=== PATIENT | female | born 1975 | race Caucasian/White ===

== ENCOUNTER 2018-03-12 17:16 | Inpatient (IN) | payer BC ==
[~2018-03-12] VITALS: Ht 165.1 cm; Wt 156.1 kg
[2018-03-12] MEDS ORDERED: LEVOFLOXACIN 500MG 100 ML IV ONE (18:00)
[2018-03-12 19:16] LABS: Basophils # (auto) 0 uL; Basophils % (auto) 0.4 % (0.0-2.0); Eosinophils # (auto) 0.3 uL; Eosinophils % (auto) 3.6 % (0.0-7.0); Hematocrit 41.7 % (36.0-46.0); Hemoglobin 12.9 g/dL (12.2-16.2); Lymphocytes # (auto) 1.4 uL; Lymphocytes % (auto) 15.6 % (10.0-50.0); Mean Corpuscular Hemoglobin 27.2 pg (28.0-32.0); Monocytes # (auto) 0.8 uL; Monocytes % (auto) 8.7 % (0.0-12.0); Neutrophils # (auto) 6.5 uL; Neutrophils % (auto) 71.7 % (37.0-80.0); Nucleated Red Blood Cells % 0.1 %; Platelet Count (auto) 321 10^3/uL (140-450); Red Blood Cells 4.74 10^6/uL (4.0-5.20); Red Cell Distribution Width 17.4 % (11.8-14.3)
[2018-03-12 19:24] LABS: Alanine Aminotransferase 35 U/L (13-56); Albumin 3.2 g/dL (3.4-5.0); Anion Gap 8 (5-15); Aspartate Aminotransferase 26 U/L (15-37); BUN/Creatinine Ratio 17.7; Blood Urea Nitrogen 14 mg/dL (7-18); Calcium 8.7 mg/dL (8.5-10.1); Carbon Dioxide 27 mmol/L (21-32); Chloride 100 mmol/L (98-107); GFR African American 103 mL/min; GFR Non-African American 85 mL/min; Glucose 143 mg/dL (74-106); Magnesium 2.2 mg/dL (1.6-2.6); Potassium 3.4 mmol/L (3.5-5.1); Sodium 135 mmol/L (136-145)
[2018-03-12 19:27] LABS: Alkaline Phosphatase 101 U/L (45-117); Bilirubin, Total 0.3 mg/dL (0.2-1.0); Total Protein 8.2 g/dL (6.4-8.2)
[2018-03-12] MEDS ORDERED: ALBUTEROL SULF 2.5 MG/0.5ML(0.5%) NEB SOLN NEB PRN (19:45)
[2018-03-12] MEDS ORDERED: HYDROcodone-ACET 5/325MG TAB PO PRN (19:45)
[2018-03-12] MEDS ORDERED: ONDANSETRON HCL 4 MG/2 ML VIAL IV PRN (19:45)
[2018-03-12] MEDS ORDERED: ACETAMINOPHEN 325 MG TAB PO PRN (19:45)
[2018-03-12] MEDS ORDERED: LISI-646 PO (20:01)
[2018-03-12] MEDS ORDERED: HYDR25TA4 PO (20:01)
[2018-03-12] MEDS ORDERED: CLON0.1T PO (20:01)
[2018-03-12] MEDS ORDERED: METO25TA5 PO (20:01)
[2018-03-12] MEDS ORDERED: AZITHROMYCIN 500MG/ 250ML 250 ML IV SCH (20:30)
[2018-03-12 21:30] VITALS: BP 117/78
[2018-03-12 21:43] VITALS: BP 136/80
[2018-03-12] MEDS: cloNIDine HCL 0.1 MG TAB PO SCH (22:00)
[2018-03-12] MEDS: LISINOPRIL 20 MG TAB PO SCH (22:09)
[2018-03-12] MEDS: METOPROLOL TARTRATE 25 MG TAB PO SCH (22:10)
[2018-03-13 05:41] VITALS: BP 106/57
[2018-03-13 06:12] LABS: Basophils # (auto) 0 uL; Basophils % (auto) 0.4 % (0.0-2.0); Eosinophils # (auto) 0.5 uL; Eosinophils % (auto) 5.6 % (0.0-7.0); Hematocrit 36.7 % (36.0-46.0); Lymphocytes # (auto) 1.7 uL; Lymphocytes % (auto) 19.1 % (10.0-50.0); Mean Corpuscular Hemoglobin 27.4 pg (28.0-32.0); Mean Corpuscular Hgb Conc. 32.6 g/dL (32.0-36.0); Monocytes # (auto) 0.9 uL; Monocytes % (auto) 10.6 % (0.0-12.0); Neutrophils # (auto) 5.6 uL; Neutrophils % (auto) 64.3 % (37.0-80.0); Nucleated Red Blood Cells % 0.1 %; Platelet Count (auto) 306 10^3/uL (140-450); Red Blood Cells 4.37 10^6/uL (4.0-5.20); Red Cell Distribution Width 16.7 % (11.8-14.3); White Blood Cell 8.7 10^3/uL (4.4-10.8)
[2018-03-13 06:18] LABS: Albumin 3.2 g/dL (3.4-5.0); Calcium 8.7 mg/dL (8.5-10.1); Potassium 3.2 mmol/L (3.5-5.1)
[2018-03-13 06:22] LABS: BUN/Creatinine Ratio 18.5
[2018-03-13 06:24] LABS: Bilirubin, Total 0.3 mg/dL (0.2-1.0); Total Protein 7.9 g/dL (6.4-8.2)
[2018-03-13] MEDS: ALBUTEROL SULF 2.5 MG/0.5ML(0.5%) NEB SOLN NEB SCH ×4 (06:48→20:18)
[2018-03-13 08:10] VITALS: BP 124/72
[2018-03-13 09:00] VITALS: BP 124/72
[2018-03-13] MEDS ORDERED: LEVOFLOXACIN 500MG 100 ML IV SCH (09:00)
[2018-03-13] MEDS: HCTZ 25 MG TAB PO SCH (09:43)
[2018-03-13] MEDS: METOPROLOL TARTRATE 25 MG TAB PO SCH ×2 (09:44→21:55)
[2018-03-13] MEDS: LISINOPRIL 20 MG TAB PO SCH ×2 (09:45→21:55)
[2018-03-13] MEDS: cloNIDine HCL 0.1 MG TAB PO SCH ×2 (09:46→21:56)
[2018-03-13 13:31] VITALS: BP 129/83
[2018-03-13] MEDS ORDERED: POTASSIUM CHLORIDE 40 MEQ, LIDOCAINE 1% (LOCAL ANESTH.) 4 ML in SODIUM CHL 0.9% 100 ML IV ONE (14:30)
[2018-03-13] MEDS: POTASSIUM CHL 20MEQ/100ML 100 ML IV SCH ×2 (16:30→18:30)
[2018-03-13 17:00] VITALS: BP 122/80
[2018-03-13 20:00] VITALS: BP_SYST 122; BP_SYST 124; BP_DIAS 54
[2018-03-13] MEDS: PROMETHAZINE W/CODEINE 5 ML ORAL SYRUP PO PRN (23:00)
[2018-03-14 04:51] VITALS: BP 151/81
[2018-03-14] MEDS: PROMETHAZINE W/CODEINE 5 ML ORAL SYRUP PO PRN (05:01)
[2018-03-14] MEDS: ALBUTEROL SULF 2.5 MG/0.5ML(0.5%) NEB SOLN NEB SCH ×2 (06:14→10:25)
[2018-03-14 07:02] LABS: Basophils # (auto) 0 uL; Basophils % (auto) 0.4 % (0.0-2.0); Eosinophils # (auto) 0.6 uL; Eosinophils % (auto) 7.7 % (0.0-7.0); Hematocrit 36.7 % (36.0-46.0); Lymphocytes # (auto) 1.5 uL; Lymphocytes % (auto) 19.9 % (10.0-50.0); Mean Corpuscular Hemoglobin 27.4 pg (28.0-32.0); Mean Corpuscular Hgb Conc. 32.7 g/dL (32.0-36.0); Mean Corpuscular Volume 83.8 fL (80.0-100.0); Monocytes # (auto) 0.6 uL; Monocytes % (auto) 8.5 % (0.0-12.0); Neutrophils # (auto) 4.8 uL; Neutrophils % (auto) 63.5 % (37.0-80.0); Nucleated Red Blood Cells % 0.1 %; Platelet Count (auto) 302 10^3/uL (140-450); Red Blood Cells 4.39 10^6/uL (4.0-5.20); Red Cell Distribution Width 16.5 % (11.8-14.3); White Blood Cell 7.6 10^3/uL (4.4-10.8)
[2018-03-14 07:12] LABS: BUN/Creatinine Ratio 25.4; Calcium 8.5 mg/dL (8.5-10.1); Potassium 3.5 mmol/L (3.5-5.1)
[2018-03-14 07:15] LABS: Bilirubin, Total 0.3 mg/dL (0.2-1.0); Total Protein 7.5 g/dL (6.4-8.2)
[2018-03-14 09:00] VITALS: BP 132/68
[2018-03-14] MEDS ORDERED: cefTRIAXone 1GM/10ml IVPUSH 10 ML IV SCH (09:00)
[2018-03-14] MEDS: cloNIDine HCL 0.1 MG TAB PO SCH (10:00)
[2018-03-14] MEDS: METOPROLOL TARTRATE 25 MG TAB PO SCH (10:40)
[2018-03-14] MEDS: LISINOPRIL 20 MG TAB PO SCH (10:41)
[2018-03-14] MEDS: HCTZ 25 MG TAB PO SCH (10:41)
[2018-03-14 11:31] VITALS: BP 132/68
== END 2018-03-14 13:20 | disposition home or self-care (01) | DRG 194 ==
LOC: ER 17:16 → TELE 17:17 → TELE-WESTW 21:30
PROVIDERS: ADMIT Internal Medicine; ATTEND Internal Medicine
DX: J18.9 Pneumonia, unspecified organism (principal); Z68.43 Body mass index [BMI] 50.0-59.9, adult; E66.01 Morbid (severe) obesity due to excess calories; E87.6 Hypokalemia; I10 Essential (primary) hypertension; R09.02 Hypoxemia; Z90.710 Acquired absence of both cervix and uterus
CPT/HCPCS: 36415; 71045; 80053; 83605; 83735; 83880; 84484; 85025; 85379; 87040; 93005; 94640; 94761; 96365; 96366; 96375; J1956; J2001; J3480

== ENCOUNTER 2019-04-15 05:44 | Inpatient (IN) | payer BC ==
[~2019-04-15] VITALS: Ht 162.6 cm; Wt 144.2 kg
[~2019-04-15 05:44] MED LIST: CLON0.1T PO; HYDR25TA4 PO; LISI-646 PO; METO25TA5 PO
[2019-04-15] MEDS ORDERED: cloNIDine HCL 0.1 MG TAB PO ONE (06:15)
[2019-04-15 06:58] LABS: Basophils # (auto) 0 uL; Basophils % (auto) 0.1 % (0.0-2.0); Eosinophils # (auto) 0.2 uL; Eosinophils % (auto) 2.8 % (0.0-7.0); Hematocrit 39.6 % (36.0-46.0); Hemoglobin 12.8 g/dL (12.2-16.2); Lymphocytes # (auto) 1.5 uL; Mean Corpuscular Hemoglobin 26.1 pg (28.0-32.0); Mean Corpuscular Hgb Conc. 32.4 g/dL (32.0-36.0); Mean Corpuscular Volume 80.6 fL (80.0-100.0); Monocytes # (auto) 0.6 uL; Monocytes % (auto) 7.5 % (0.0-12.0); Neutrophils # (auto) 5.5 uL; Neutrophils % (auto) 70.6 % (37.0-80.0); Platelet Count (auto) 315 10^3/uL (140-450); Red Blood Cells 4.92 10^6/uL (4.0-5.20); White Blood Cell 7.8 10^3/uL (4.4-10.8)
[2019-04-15 07:27] LABS: Albumin 3.5 g/dL (3.4-5.0); Blood Urea Nitrogen 20 mg/dL (7-18); Chloride 106 mmol/L (98-107); Glucose 106 mg/dL (74-106); Potassium 3.7 mmol/L (3.5-5.1); Sodium 140 mmol/L (136-145)
[2019-04-15 07:41] LABS: Alanine Aminotransferase 47 U/L (13-56); Alkaline Phosphatase 106 U/L (45-117); Anion Gap 9 (5-15); Aspartate Aminotransferase 19 U/L (15-37); BUN/Creatinine Ratio 30.3; Bilirubin, Total 0.3 mg/dL (0.2-1.0); Carbon Dioxide 25 mmol/L (21-32); GFR African American 126 mL/min; GFR Non-African American 104 mL/min; Total Protein 7.6 g/dL (6.4-8.2)
[2019-04-15] MEDS ORDERED: ACETAMINOPHEN 325 MG TAB PO ONE (08:00)
[2019-04-15] MEDS ORDERED: SODIUM CHLORIDE 0.9% 1,000 ML IV SCH (10:11)
[2019-04-15] MEDS ORDERED: PROMETHAZINE HCL 25 MG/ML 1ML IV PRN (10:15)
[2019-04-15] MEDS ORDERED: TEMAZEPAM 15 MG CAP PO PRN (10:15)
[2019-04-15] MEDS ORDERED: ACETAMINOPHEN 500 MG TAB PO PRN (10:15)
[2019-04-15] MEDS ORDERED: LACTULOSE 20Gm/30ML SOLN PO PRN (10:15)
[2019-04-15] MEDS ORDERED: ALBUTEROL SULF 2.5 MG/0.5ML(0.5%) NEB SOLN NEB PRN (10:15)
[2019-04-15] MEDS ORDERED: MORPHINE SULF INJ 2 MG/ML SYRINGE 1ML IV PRN (10:15)
[2019-04-15] MEDS ORDERED: NITROGLYCERIN 0.4 MG SL TAB SL PRN (10:15)
[2019-04-15] MEDS ORDERED: LOSARTAN POTASSIUM 25 MG TAB PO ONE (11:00)
[2019-04-15] MEDS: traMADol HCL 50 MG TAB PO PRN ×2 (11:43→21:17)
[2019-04-15] MEDS: METOPROLOL TARTRATE 25 MG TAB PO SCH ×2 (11:43→21:44)
[2019-04-15] MEDS ORDERED: ALBUTEROL SULF 2.5 MG/0.5ML(0.5%) NEB SOLN NEB SCH (12:00)
[2019-04-15] MEDS ORDERED: POTASSIUM EFFERVESENT TAB 25 MEQ PO ONE (12:15)
[2019-04-15] MEDS ORDERED: FUROSEMIDE 40 MG/4 ML VIAL IV ONE (12:15)
--- NOTE | 2019-04-15 19:21 | NUR ---
OPENING NOTES RECEIVED REPORT FROM [facility] NURSE JUAN. PT IS AWAKE AND ORIENTATED WITH NO S/S OF DISTRESS BUT PAIN 8/10 WITH SOME NAUSEA. NO S/S OF SOB. FAMILY IS AT BEDSIDE. BED BRAKES ARE LOCKED AND BED IS IN LOWEST POSITION. CALL LIGHT IS WITH IN REACH AND SIDE RAILS ARE UP X 2. HOB IS 30 DEGREES. DISCUSSED POC WITH PATIENT. PT VERBALIZED UNDERSTANDING. WILL MONITOR Q 1HR.
[2019-04-15 21:25] VITALS: BP 171/91
[2019-04-15] MEDS: ATORVASTATIN 20 MG TAB PO SCH (21:44)
[2019-04-15] MEDS ORDERED: METOPROLOL TARTRATE 25 MG TAB PO SCH (22:00)
[2019-04-16] MEDS: traMADol HCL 50 MG TAB PO PRN ×2 (04:04→19:32)
[2019-04-16 05:11] VITALS: BP 163/90
[2019-04-16 07:07] LABS: Cholesterol 156 mg/dL (< 200); HDL Cholesterol 41 mg/dL (40-59); LDL Cholesterol 100 mg/dL (< 100); Triglycerides 168 mg/dL (< 150)
--- NOTE | 2019-04-16 07:14 | NUR ---
CLOSING NOTES ENDORSED CARE TO DAY SHIFT NURSEJUAN.
[2019-04-16 08:59] VITALS: BP 159/81
[2019-04-16] MEDS ORDERED: LOSARTAN POTASSIUM 25 MG TAB PO SCH (10:00)
[2019-04-16] MEDS ORDERED: NITROGLYCERIN 0.2MG/HR TOPICAL PATCH TD SCH (10:00)
[2019-04-16] MEDS ORDERED: POTASSIUM CHL 20 Meq TABLET PO SCH (10:00)
[2019-04-16] MEDS ORDERED: ENALAPRIL MALEATE 10 MG TAB PO SCH (10:00)
[2019-04-16] MEDS ORDERED: LEVOFLOXACIN 500MG 100 ML IV SCH (10:00)
[2019-04-16] MEDS ORDERED: FUROSEMIDE 40 MG/4 ML VIAL IV SCH (10:00)
[2019-04-16] MEDS: ASPirin 81 mg TAB PO SCH (10:43)
[2019-04-16] MEDS: METOPROLOL TARTRATE 25 MG TAB PO SCH ×2 (10:44→21:24)
[2019-04-16] MEDS: ENOXAPARIN SOD 40 MG/0.4 ML SYRINGE SC SCH (10:44)
[2019-04-16] MEDS ORDERED: OPTISON 3ml Vial for INJ IV ONE (11:31)
[2019-04-16 13:00] VITALS: BP 157/89
[2019-04-16] MEDS ORDERED: HCTZ 25 MG TAB PO ONE (15:15)
[2019-04-16 17:17] VITALS: BP 158/75
[2019-04-16 20:00] VITALS: BP 158/75
--- NOTE | 2019-04-16 20:58 | NUR ---
OPENING NOTES RECEIVED REPORT FROM [facility] NURSE JUAN. PT IS AWAKE AND ORIENTATED x 4 WITH NO S/S OF DISTRESS BUT HAS HEADACHE WITH PAIN 5/10 NO NAUSEA. NO S/S OF SOB. FAMILY IS AT BEDSIDE. BED BRAKES ARE LOCKED AND BED IS IN LOWEST POSITION. CALL LIGHT IS WITH IN REACH AND SIDE RAILS ARE UP X 2. HOB IS 30 DEGREES. DISCUSSED POC WITH PATIENT. PT VERBALIZED UNDERSTANDING. WILL MONITOR Q 1HR.
[2019-04-16] MEDS: ATORVASTATIN 20 MG TAB PO SCH (21:23)
[2019-04-16 21:53] VITALS: BP 174/78
[2019-04-17] VITALS (7 sets, daily range): BP systolic 130–161; BP diastolic 69–84
[2019-04-17 05:41] LABS: Basophils # (auto) 0.1 uL; Eosinophils # (auto) 0.3 uL; Hemoglobin 13.5 g/dL (12.2-16.2); Mean Corpuscular Hemoglobin 26.4 pg (28.0-32.0); Monocytes # (auto) 0.6 uL
[2019-04-17 05:45] LABS: Basophils % (auto) 0.9 % (0.0-2.0); Eosinophils % (auto) 3.8 % (0.0-7.0); Hematocrit 41.2 % (36.0-46.0); Lymphocytes # (auto) 1.5 uL; Lymphocytes % (auto) 17.5 % (10.0-50.0); Mean Corpuscular Hgb Conc. 32.7 g/dL (32.0-36.0); Mean Corpuscular Volume 80.8 fL (80.0-100.0); Monocytes % (auto) 7.3 % (0.0-12.0); Neutrophils # (auto) 5.9 uL; Neutrophils % (auto) 70.5 % (37.0-80.0); Platelet Count (auto) 329 10^3/uL (140-450); Red Cell Distribution Width 16.5 % (11.8-14.3); White Blood Cell 8.4 10^3/uL (4.4-10.8)
[2019-04-17 06:07] LABS: BUN/Creatinine Ratio 21.9; Calcium 9.4 mg/dL (8.5-10.1); Magnesium 2.1 mg/dL (1.6-2.6)
--- NOTE | 2019-04-17 07:18 | NUR ---
CLOSING NOTES ENDORSED CARE TO DAY SHIFT NURSEJUAN.
--- NOTE | 2019-04-17 07:30 | NUR ---
AWAKE ALERT ORIENTED TIMES 4 DENIES ANY DIZZINESS OR CHEST PAIN AT THIS TIME . NO SIGNS OF DISTRESS.
[2019-04-17] MEDS: LOSARTAN POTASSIUM 50 MG TAB PO SCH (09:35)
[2019-04-17] MEDS: ENOXAPARIN SOD 40 MG/0.4 ML SYRINGE SC SCH (09:35)
[2019-04-17] MEDS: ASPirin 81 mg TAB PO SCH (09:35)
[2019-04-17] MEDS: METOPROLOL TARTRATE 25 MG TAB PO SCH ×2 (09:36→21:48)
[2019-04-17] MEDS: HCTZ 25 MG TAB PO SCH (09:36)
[2019-04-17] MEDS: traMADol HCL 50 MG TAB PO PRN (12:28)
--- NOTE | 2019-04-17 12:29 | NUR ---
CRYING STATES HEADACHE 8/10 AND FELT DIZZY WHEN SHE WALKED TO THE BATH ROOM. MEDICATED WITH ULTRAM 50 MG.
--- NOTE | 2019-04-17 12:30 | NUR ---
DR Evangelist DAVEY AT BEDSIDE.
--- NOTE | 2019-04-17 19:42 | NUR ---
OPENING NOTES RECEIVED REPORT FROM [facility] NURSE JUNA. PT IS AWAKE AND ORIENTATED x 4 WITH NO S/S OF DISTRESS BUT HAS HEADACHE WITH PAIN 4/10 NO NAUSEA. NO S/S OF SOB. FAMILY IS AT BEDSIDE. BED BRAKES ARE LOCKED AND BED IS IN LOWEST POSITION. CALL LIGHT IS WITH IN REACH AND SIDE RAILS ARE UP X 2. HOB IS 30 DEGREES. DISCUSSED POC WITH PATIENT. PT VERBALIZED UNDERSTANDING. WILL MONITOR Q 1HR.
[2019-04-17] MEDS: ATORVASTATIN 20 MG TAB PO SCH (21:47)
[2019-04-18 05:00] VITALS: BP 130/73
[2019-04-18] MEDS: traMADol HCL 50 MG TAB PO PRN ×2 (05:49→11:26)
--- NOTE | 2019-04-18 07:05 | NUR ---
CLOSING NOTES ENDORSED CARE TO DAY SHIFT NURSEJUAN.
[2019-04-18 08:00] VITALS: BP 136/80
[2019-04-18 09:00] VITALS: BP 139/78
[2019-04-18] MEDS: ASPirin 81 mg TAB PO SCH (09:36)
[2019-04-18] MEDS: LOSARTAN POTASSIUM 50 MG TAB PO SCH (09:36)
[2019-04-18] MEDS: METOPROLOL TARTRATE 25 MG TAB PO SCH (09:37)
[2019-04-18] MEDS: HCTZ 25 MG TAB PO SCH (09:37)
[2019-04-18] MEDS: ENOXAPARIN SOD 40 MG/0.4 ML SYRINGE SC SCH (09:38)
--- NOTE | 2019-04-18 09:50 | NUR ---
STATES HEAD ACHE 03/05. MEDICATED WITH TYLENOL.
--- NOTE | 2019-04-18 10:42 | NUR ---
AWAKE ALERT ORIENTED TIMES 4. DENIES ANY CHEST PAIN OR DIZZINESS AT THIS TIME. NO SIGNS OF DISTRESS.
[2019-04-18 11:46] VITALS: BP 139/78
[2019-04-18 12:42] VITALS: BP 128/65
--- NOTE | 2019-04-18 13:21 | NUR ---
Discharge instructions given as ordered. Encourage to follow up with PMD as instructed. All questions and concerns addressed. Patient verbalized understanding. Medication reconciliation form completed and copy given to patient. Patient taken to vehicle via wheelchair with all personal belongings, accompanied by staff and family member. No distress noted at time of departure.
== END 2019-04-18 13:30 | disposition home or self-care (01) | DRG 305 ==
LOC: ER 05:49 → TELE 05:50 → TELE-WESTW 16:09
PROVIDERS: ADMIT Internal Medicine; ATTEND Internal Medicine
DX: I16.0 Hypertensive urgency (principal); Z68.43 Body mass index [BMI] 50.0-59.9, adult; E66.01 Morbid (severe) obesity due to excess calories; M19.90 Unspecified osteoarthritis, unspecified site; I11.0 Hypertensive heart disease with heart failure; I50.9 Heart failure, unspecified; Z90.49 Acquired absence of other specified parts of digestive tract; Z90.710 Acquired absence of both cervix and uterus; Z83.3 Family history of diabetes mellitus; Z82.49 Family history of ischemic heart disease and other diseases of the circulatory system; Z79.899 Other long term (current) drug therapy
CPT/HCPCS: 36415; 70450; 71045; 80048; 80053; 80061; 82550; 83735; 83880; 84484; 85025; 85379; 85652; 86141; 93005; 93306; 96361; 96374; G0378; Q9956

== ENCOUNTER 2019-07-08 15:40 | Inpatient (IN) | payer BC ==
[~2019-07-08] VITALS: Ht 30.5 cm; Wt 153.3 kg
[~2019-07-08 15:40] MED LIST changes: -HYDR25TA4 PO; -LISI-646 PO
--- NOTE | 2019-07-08 16:30 | NUR ---
Direct Admit Note AZAEL MELENDREZ admitted to Telemetry/MS unit as a direct admit per MD order. Patient oriented to ANTOINE SRIVASTAVA RN primary RN, unit, room, bed, and unit policies regarding patient care and visiting hours. Patient now on continuous telemetry monitoring, tele box # [id number] and telemetry reading on arrival to unit is sinus tachycardia at 108. Patient placed on bedside oxygen, weighed by bed scale and encouraged to call if they need something. All questions and concerns addressed, patient verbalized understanding. MD notified of patients arrival and admit orders received.
[2019-07-08 17:00] VITALS: BP 165/93
--- NOTE | 2019-07-08 17:00 | NUR ---
Paged Dr. Anmol MD, for orders regarding direct admission. Awaiting reply.
--- NOTE | 2019-07-08 17:27 | NUR ---
Received call back from Dr. Anmol MD; new orders received.
[2019-07-08] MEDS ORDERED: ALBUTEROL SULF 2.5 MG/0.5ML(0.5%) NEB SOLN NEB PRN (17:30)
[2019-07-08] MEDS ORDERED: ALBUTEROL SULF 2.5 MG/0.5ML(0.5%) NEB SOLN NEB ONE (17:30)
[2019-07-08 18:05] LABS: Basophils # (auto) 0.1 uL; Eosinophils # (auto) 0.3 uL; Hemoglobin 12.8 g/dL (12.2-16.2); Mean Corpuscular Hemoglobin 26.6 pg (28.0-32.0); Neutrophils # (auto) 10.3 uL; Red Cell Distribution Width 17.4 % (11.8-14.3)
[2019-07-08] MEDS: ALBUTEROL SULF 2.5 MG/0.5ML(0.5%) NEB SOLN NEB SCH ×2 (18:05→22:31)
[2019-07-08 18:06] LABS: Basophils % (auto) 0.8 % (0.0-2.0); Hematocrit 39.5 % (36.0-46.0); Lymphocytes # (auto) 1.1 uL; Lymphocytes % (auto) 8.9 % (10.0-50.0); Mean Corpuscular Hgb Conc. 32.3 g/dL (32.0-36.0); Mean Corpuscular Volume 82.5 fL (80.0-100.0); Monocytes # (auto) 0.7 uL; Monocytes % (auto) 5.9 % (0.0-12.0); Neutrophils % (auto) 82.4 % (37.0-80.0); Nucleated Red Blood Cells % 0.1 %; Platelet Count (auto) 305 10^3/uL (140-450); Red Blood Cells 4.79 10^6/uL (4.0-5.20); White Blood Cell 12.5 10^3/uL (4.4-10.8)
[2019-07-08] MEDS ORDERED: cefTRIAXone 1GM/50ML D5W 50 ML IV ONE (18:15)
[2019-07-08 18:28] LABS: Albumin 3.3 g/dL (3.4-5.0); Calcium 8.5 mg/dL (8.5-10.1); Potassium 3.5 mmol/L (3.5-5.1)
[2019-07-08] MEDS: ACETAMINOPHEN 325 MG TAB PO PRN (18:28)
[2019-07-08] MEDS: LABETALOL HCL 5 MG/ML ML 20ML VIAL IV PRN (18:29)
[2019-07-08] MEDS: SODIUM CHLORIDE 0.9% 1,000 ML IV SCH (18:29)
[2019-07-08 18:33] LABS: BUN/Creatinine Ratio 12.9; Bilirubin, Total 0.6 mg/dL (0.2-1.0); Total Protein 7.6 g/dL (6.4-8.2)
[2019-07-08] MEDS ORDERED: LOSA-69 PO (19:02)
[2019-07-08] MEDS ORDERED: HCTZ25T PO (19:02)
--- NOTE | 2019-07-08 19:30 | NUR ---
RECEIVED PT FROM DAY RN POC REVIEWED
[2019-07-08 19:57] VITALS: BP 165/93
[2019-07-08] MEDS: methylPREDNISolone SOD SUCC 40 MG/ML VL IV SCH (21:35)
[2019-07-08 22:07] VITALS: BP 153/82
--- NOTE | 2019-07-08 23:48 | NUR ---
RESTING COMFORTABLE WITH HOB UP RESP EVEN AND UNLABORED, NO S/S OF RESP DISTRESS SATS 98% ON 2L
[2019-07-09] MEDS: LABETALOL HCL 5 MG/ML ML 20ML VIAL IV PRN (00:49)
[2019-07-09] MEDS: ZOLPIDEM TARTRATE 5 MG TAB PO PRN (00:54)
[2019-07-09] MEDS: ACETAMINOPHEN 325 MG TAB PO PRN ×2 (01:00→20:38)
[2019-07-09] MEDS: ALBUTEROL SULF 2.5 MG/0.5ML(0.5%) NEB SOLN NEB SCH ×6 (02:21→22:40)
[2019-07-09 05:59] VITALS: BP_SYST 153
--- NOTE | 2019-07-09 06:53 | NUR ---
resting with eyes closed resp even and unlabored, denies pain report given to am nurse poc reviewed
--- NOTE | 2019-07-09 07:30 | NUR ---
Opening Shift Note Assumed care of patient, awake, alert, and oriented x4. No S/S of distress/SOB or pain. IV is in left forearm and is asymptomatic, intact, patent, and infusing normal saline at 50 mL/hour. Bed is locked and in lowest position and call light is within reach. Instructed on POC and to call for assist PRN, and patient verbalized understanding. Will continue to monitor for changes Q1hr and PRN.
--- NOTE | 2019-07-09 08:45 | NUR ---
Dr. Anmol MD, at bedside.
[2019-07-09 09:00] VITALS: BP 149/65
[2019-07-09] MEDS: methylPREDNISolone SOD SUCC 40 MG/ML VL IV SCH ×2 (09:35→20:30)
[2019-07-09] MEDS: cefTRIAXone 1GM/50ML D5W 50 ML IV SCH (09:35)
[2019-07-09 10:08] LABS: Basophils # (auto) 0.1 uL; Eosinophils # (auto) 0 uL; Lymphocytes # (auto) 0.7 uL; Mean Corpuscular Volume 83.4 fL (80.0-100.0); Monocytes # (auto) 0.4 uL
[2019-07-09 10:10] LABS: Basophils % (auto) 1.3 % (0.0-2.0); Eosinophils % (auto) 0.1 % (0.0-7.0); Hemoglobin 12.5 g/dL (12.2-16.2); Lymphocytes % (auto) 6.7 % (10.0-50.0); Mean Corpuscular Hemoglobin 26.7 pg (28.0-32.0); Monocytes % (auto) 3.3 % (0.0-12.0); Neutrophils # (auto) 9.7 uL; Neutrophils % (auto) 88.6 % (37.0-80.0); Platelet Count (auto) 327 10^3/uL (140-450); Red Blood Cells 4.68 10^6/uL (4.0-5.20); Red Cell Distribution Width 17.2 % (11.8-14.3); White Blood Cell 10.9 10^3/uL (4.4-10.8)
[2019-07-09 10:26] LABS: Albumin 3.3 g/dL (3.4-5.0); Calcium 8.4 mg/dL (8.5-10.1); Potassium 4.4 mmol/L (3.5-5.1)
[2019-07-09 10:39] LABS: BUN/Creatinine Ratio 15.2; Total Protein 7.2 g/dL (6.4-8.2)
[2019-07-09 10:42] LABS: Bilirubin, Total 0.3 mg/dL (0.2-1.0)
[2019-07-09 13:00] VITALS: BP 135/63
[2019-07-09] MEDS: SODIUM CHLORIDE 0.9% 1,000 ML IV SCH (13:30)
[2019-07-09 16:44] VITALS: BP 127/56
--- NOTE | 2019-07-09 19:47 | NUR ---
RECEIVED PT FROM DAY RN POC REVIEWED
[2019-07-09 22:07] VITALS: BP 147/79
[2019-07-10] MEDS: ALBUTEROL SULF 2.5 MG/0.5ML(0.5%) NEB SOLN NEB SCH ×6 (02:15→22:04)
--- NOTE | 2019-07-10 02:17 | NUR ---
PT AWOKE C/O INCREASED SOB WHEN WALKING, O2 INCREASED TO 2L, LONG O2 TUBING USED TO AMBULATE TO BATHROOM
--- NOTE | 2019-07-10 05:09 | NUR ---
pt c/o sob after drinking large amounts of fluid, reminded pt to limit her fluids discussed poc
[2019-07-10 05:27] VITALS: BP 149/79
--- NOTE | 2019-07-10 06:53 | NUR ---
report given to am nurse poc reviewed
[2019-07-10 06:57] LABS: Basophils # (auto) 0 uL; Basophils % (auto) 0.2 % (0.0-2.0); Eosinophils # (auto) 0 uL; Hematocrit 37.1 % (36.0-46.0); Hemoglobin 12.1 g/dL (12.2-16.2); Lymphocytes % (auto) 6.6 % (10.0-50.0); Mean Corpuscular Hemoglobin 27.1 pg (28.0-32.0); Mean Corpuscular Hgb Conc. 32.7 g/dL (32.0-36.0); Mean Corpuscular Volume 82.7 fL (80.0-100.0); Monocytes # (auto) 0.6 uL; Monocytes % (auto) 4.4 % (0.0-12.0); Neutrophils # (auto) 12.9 uL; Neutrophils % (auto) 88.8 % (37.0-80.0); Platelet Count (auto) 333 10^3/uL (140-450); Red Blood Cells 4.49 10^6/uL (4.0-5.20); Red Cell Distribution Width 17.4 % (11.8-14.3); White Blood Cell 14.5 10^3/uL (4.4-10.8)
[2019-07-10 07:19] LABS: Albumin 3.2 g/dL (3.4-5.0); BUN/Creatinine Ratio 20.3; Calcium 8.9 mg/dL (8.5-10.1)
[2019-07-10 07:22] LABS: Bilirubin, Total 0.2 mg/dL (0.2-1.0); Total Protein 7.5 g/dL (6.4-8.2)
--- NOTE | 2019-07-10 07:55 | NUR ---
Opening Shift Note Assumed care of patient, awake and alert, sitting up at the side of the bed. No S/S of distress/SOB or pain. Instructed on POC and to call for assist PRN, will continue to monitor for changes Q1hr and PRN.
[2019-07-10 09:00] VITALS: BP 161/77
[2019-07-10] MEDS: cefTRIAXone 1GM/50ML D5W 50 ML IV SCH (09:25)
[2019-07-10] MEDS: methylPREDNISolone SOD SUCC 40 MG/ML VL IV SCH ×2 (09:32→21:56)
[2019-07-10] MEDS: LABETALOL HCL 5 MG/ML ML 20ML VIAL IV PRN (09:33)
[2019-07-10] MEDS: SODIUM CHLORIDE 0.9% 1,000 ML IV SCH (09:33)
--- NOTE | 2019-07-10 11:00 | NUR ---
Spouse at bedside. Patient eating outside meal.
[2019-07-10 13:00] VITALS: BP 162/97
[2019-07-10 17:00] VITALS: BP 126/64
--- NOTE | 2019-07-10 19:40 | NUR ---
Opening Shift Note Assumed care of patient, alert and oriented x 4. No S/S of distress or pain. C/O SOB with exertion. On 2L oxygen via nasal cannula and ambulatory. Bed in lowest locked position, side rails up x 2, call light within reach. Instructed on POC and to call for assist PRN, will continue to monitor for changes Q1hr and PRN.
[2019-07-10 21:00] VITALS: BP 142/69
[2019-07-10] MEDS: LORATADINE 10 MG TAB PO SCH (21:56)
[2019-07-10] MEDS: ZOLPIDEM TARTRATE 5 MG TAB PO PRN (21:56)
--- NOTE | 2019-07-10 23:00 | NUR ---
Patient C/O Chest pain of 7/10. Patient stated, "I have a sharp pain in my chest." Blood pressure reading of 141/72. EKG reading Sinus rhythm, heart rate 71. Patient is stable. Will follow up on protocol for CP.
--- NOTE | 2019-07-10 23:05 | NUR ---
Patient reports not having anymore chest pain. Patient resting in bed, asymptomatic and stable. Will continue to monitor and continue care.
--- NOTE | 2019-07-10 23:05 | NUR ---
Paged WANDA Negron for telemetry protocol orders. Awaiting call back.
--- NOTE | 2019-07-10 23:15 | NUR ---
Received call back from WANDA Negron. Made aware of patient experiencing CP. Ordered telemetry protocol. RBO, will carry out orders and continue care.
[2019-07-10] MEDS ORDERED: MORPHINE SULF INJ 2 MG/ML SYRINGE 1ML IV PRN (23:30)
[2019-07-10] MEDS ORDERED: NITROGLYCERIN 0.4 MG SL TAB SL PRN (23:30)
[2019-07-11 05:59] LABS: Basophils # (auto) 0 uL; Basophils % (auto) 0.2 % (0.0-2.0); Eosinophils # (auto) 0 uL; Hemoglobin 11.8 g/dL (12.2-16.2)
[2019-07-11] MEDS: ALBUTEROL SULF 2.5 MG/0.5ML(0.5%) NEB SOLN NEB SCH ×6 (06:00→22:35)
[2019-07-11 06:03] LABS: Hematocrit 37.4 % (36.0-46.0); Lymphocytes # (auto) 1.1 uL; Lymphocytes % (auto) 8.8 % (10.0-50.0); Mean Corpuscular Hemoglobin 26.3 pg (28.0-32.0); Mean Corpuscular Hgb Conc. 31.5 g/dL (32.0-36.0); Mean Corpuscular Volume 83.8 fL (80.0-100.0); Monocytes # (auto) 0.4 uL; Monocytes % (auto) 3.2 % (0.0-12.0); Neutrophils # (auto) 10.6 uL; Neutrophils % (auto) 87.8 % (37.0-80.0); Platelet Count (auto) 342 10^3/uL (140-450); Red Blood Cells 4.46 10^6/uL (4.0-5.20); Red Cell Distribution Width 16.8 % (11.8-14.3); White Blood Cell 12.1 10^3/uL (4.4-10.8)
[2019-07-11 06:24] LABS: Potassium 4.2 mmol/L (3.5-5.1)
[2019-07-11] MEDS: SODIUM CHLORIDE 0.9% 1,000 ML IV SCH (06:41)
[2019-07-11 07:41] LABS: BUN/Creatinine Ratio 29.5
[2019-07-11 07:42] LABS: Bilirubin, Total 0.3 mg/dL (0.2-1.0); Calcium 8.5 mg/dL (8.5-10.1); Total Protein 7.2 g/dL (6.4-8.2)
--- NOTE | 2019-07-11 07:50 | NUR ---
Opening Shift Note Assumed care of patient, awake and alert sitting up in bed. No S/S of distress/SOB or pain. Instructed on POC and to call for assist PRN, will continue to monitor for changes Q1hr and PRN.
[2019-07-11] MEDS: ACETAMINOPHEN 325 MG TAB PO PRN (07:58)
[2019-07-11] MEDS: LABETALOL HCL 5 MG/ML ML 20ML VIAL IV PRN ×2 (07:59→21:43)
[2019-07-11 09:00] VITALS: BP 151/90
[2019-07-11] MEDS: cefTRIAXone 1GM/50ML D5W 50 ML IV SCH (09:28)
[2019-07-11] MEDS: methylPREDNISolone SOD SUCC 40 MG/ML VL IV SCH ×2 (09:29→21:42)
--- NOTE | 2019-07-11 10:50 | NUR ---
IV removal IV to left forearm leaking. Same DC'd with clean sterile technique, catheter fully intact. Pressure dressing applied to site. Patient tolerated well. IV insertion IV access obtained, via clean sterile technique by inserting 22 gauge catheter at right forearm after 1 attempt by lost charge card clerk. IV secured properly. No trauma to site. Patient tolerated well.
[2019-07-11 13:00] VITALS: BP 139/77
--- NOTE | 2019-07-11 16:15 | NUR ---
Oxygen Saturation Patient oxygen saturation after ambulating in room was 92-94%.
[2019-07-11 16:34] VITALS: BP 148/68
--- NOTE | 2019-07-11 20:00 | NUR ---
Opening Shift Note Assumed care of patient, alert and oriented x 4. No S/S of distress/SOB or pain. Ambulatory and on room air. Bed in lowest locked position, side rails up x 2, call light within reach. Instructed on POC and to call for assist PRN, will continue to monitor for changes Q1hr and PRN.
[2019-07-11] MEDS: ZOLPIDEM TARTRATE 5 MG TAB PO PRN (21:43)
[2019-07-11] MEDS: LORATADINE 10 MG TAB PO SCH (21:43)
[2019-07-11 22:00] VITALS: BP 162/85
[2019-07-12] MEDS: SODIUM CHLORIDE 0.9% 1,000 ML IV SCH (01:30)
[2019-07-12] MEDS: ALBUTEROL SULF 2.5 MG/0.5ML(0.5%) NEB SOLN NEB SCH ×3 (02:17→10:48)
[2019-07-12 04:08] VITALS: BP 147/79
[2019-07-12 05:00] VITALS: BP_SYST 112; BP_SYST 150; BP_DIAS 65; BP_DIAS 82
[2019-07-12 06:05] LABS: Hematocrit 37.1 % (36.0-46.0); Hemoglobin 12.1 g/dL (12.2-16.2); Mean Corpuscular Hemoglobin 27.1 pg (28.0-32.0); Mean Corpuscular Hgb Conc. 32.7 g/dL (32.0-36.0); Mean Corpuscular Volume 82.9 fL (80.0-100.0); Platelet Count (auto) 332 10^3/uL (140-450); Red Blood Cells 4.48 10^6/uL (4.0-5.20); Red Cell Distribution Width 16.9 % (11.8-14.3); White Blood Cell 10.6 10^3/uL (4.4-10.8)
[2019-07-12 06:10] LABS: BUN/Creatinine Ratio 27.5; Calcium 8.4 mg/dL (8.5-10.1); Potassium 4.2 mmol/L (3.5-5.1)
[2019-07-12 06:19] LABS: Band Neutrophils % (manual) 0; Basophils % (manual) 0 (0.0-2.0); Blast Cells 0; Eosinophils % (manual) 0 (0-7); Metamyelocytes % 0; Myelocytes % 0; Promyelocytes % 0; Reactive Lymphocytes 0
[2019-07-12 06:51] LABS: Lymphocytes % (manual) 13 (10.0-50.0); Monocytes % (manual) 5 (0-12)
--- NOTE | 2019-07-12 07:42 | NUR ---
OPENING NOTE Assumed care of patient from NOC RN. Patient awake and alert with no S/S of distress/SOB or pain. Instructed on POC and to call for assist PRN, verbalized understanding. Bed in lowest, locked position with side rails up x2 and call light within reach. Will continue to monitor for changes Q1hr and PRN.
[2019-07-12 09:00] VITALS: BP 148/86
--- NOTE | 2019-07-12 09:33 | NUR ---
MEDICATION Per MD, Dr. Corea, patient is being discharged. Was scheduled for 0900 Rocephin, however IV infiltrated. Per Dr Corea, okay to non-administer medication.
[2019-07-12] MEDS: cefTRIAXone 1GM/50ML D5W 50 ML IV SCH (09:58)
[2019-07-12] MEDS: methylPREDNISolone SOD SUCC 40 MG/ML VL IV SCH (09:58)
--- NOTE | 2019-07-12 12:10 | NUR ---
DISCHARGE Discharge instructions given as ordered. Encouraged to follow up with PMD as instructed. All questions and concerns addressed. Patient verbalized understanding. Medication reconciliation form completed and copy given to patient. IV removed with catheter intact and pressure dressing applied. Telemetry unit returned to ICU. Patient ambulated to vehicle via wheelchair with all personal belongings, accompanied by family member. No distress noted at time of departure.
== END 2019-07-12 12:10 | disposition home or self-care (01) | DRG 190 ==
LOC: TELE-WESTW 16:03
PROVIDERS: ADMIT Internal Medicine; ATTEND Internal Medicine
DX: J44.0 Chronic obstructive pulmonary disease with (acute) lower respiratory infection (principal); J18.9 Pneumonia, unspecified organism; J45.901 Unspecified asthma with (acute) exacerbation; E44.0 Moderate protein-calorie malnutrition; Z68.45 Body mass index [BMI] 70 or greater, adult; J44.1 Chronic obstructive pulmonary disease with (acute) exacerbation; E66.01 Morbid (severe) obesity due to excess calories; I11.9 Hypertensive heart disease without heart failure; E11.9 Type 2 diabetes mellitus without complications; G47.30 Sleep apnea, unspecified; Z90.49 Acquired absence of other specified parts of digestive tract
CPT/HCPCS: 36415; 71045; 71046; 80048; 80053; 85007; 85025; 85027; 87040; 94640; G0378; J0696